=== PATIENT | female | born 1945 | race African-American/Black ===

== ENCOUNTER → 2017-05-24 | Outpatient (CLI) | payer OTHER ==
[~2017-05-24] MED LIST: BENADRYL25 M1 PO; CIPRO PO; FLORASTOR250 M1 PO; HYDROCHLOROTH12.5 MG PO; LISINOPRIL20 MG PO; METOPROLOL TAR100 MG PO; MULTI-VITAMIN1 EAC1 PO; NO MEDICATIONS; NORVASC10 MG PO; PERCOCET 5/321 UDTAB PO; PHENERGAN12.5 M1 PR; PRINIVIL40 MG PO; VICODIN PO; ZESTRIL40 MG PO
--- NOTE | ~2017-05-24 | CT2 ---
[facility] A Service of [facility] & [facility] RADIOLOGY TEXT RESULTS PATIENT: MAI HAYS [facility] 43 UNIT #: [id number] AGE: [address]: Quan Hernandez MD SEX: F ORDER DR: [id number] [facility] [address] [place], [place] [address] [id number] O MR#: [id number] [facility] #: [id number] NAME: MAI HAYS : 1945 SEX: F STUDY DATE/TIME: 05/24/2017 8:10 UNIT: [facility] ROOM: STUDY DESCRIPTION: CT Abd and Pelv W Cont Attending Physician: Quan Hernandez M.D. Referring Physician: Quan Hernandez M.D. Ordering Physician: Quan Hernandez M.D. Primary Care Physician: Ariella Cervantes M.D. 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 Status post surgical resection. Restaging. Observation for metastatic disease. TECHNIQUE CT abdomen and pelvis with oral and IV contrast (100 mL Isovue-370 IV contrast). Coronal and sagittal reconstructions were obtained. This CT exam was performed with one or more of the following radiation dose reduction techniques: automatic exposure control, adjustment of mA and/or kV according to patient size, and iterative reconstruction. COMPARISON CT abdomen and pelvis 03/18/2016. FINDINGS ABDOMEN: There is no abnormal enhancing mass or lesion in the liver. The gallbladder is full of gallstones. No gallbladder inflammation. Intrahepatic extrahepatic bile ducts are normal in caliber. The pancreas, spleen, adrenal glands, and kidneys are within normal limits. There is a small cyst in the in both kidneys. A small gastric diverticulum is noted at the fundus. The bowel is not dilated. The patient has had prior sigmoid colon resection with subsequent reanastomosis. There is no recurrent or residual mass identified at the sigmoid colon. No pathologically enlarged retroperitoneal or mesenteric lymph nodes. The abdominal aorta is normal in caliber. [facility] A Service of [facility] & [facility] RADIOLOGY TEXT RESULTS PATIENT: MAI HAYS LOCATION: [facility] : 43 UNIT #: [id number] AGE: [address]: Quan Hernandez MD SEX: F ORDER DR: There is a small umbilical hernia. PELVIS: The bladder is unremarkable. The uterus and ovaries are within normal limits. There is no enlarged pelvic or inguinal lymph nodes. No acute osseous abnormalities. IMPRESSION 1. No evidence of metastatic disease in the abdomen or pelvis. 2. Apparent postsurgical change of sigmoid colon resection with subsequent reanastomosis. No recurrent or residual mass is identified. Dictated by... Raheem Zambrano M.D. THIS IS AN ELECTRONICALLY VERIFIED REPORT Raheem Zambrano M.D. at 05/24/2017 6:52 PM ADRIANO/shamika TD: 05/24/2017 18:37 JOB #: [id number] MEDICAL IMAGING REPORT Page 1 of 1 COPY
[2017-05-24 12:21] LABS: POC - CREATININE 1.08 mg/dL (0.44-1.03); POC - GFR >60.0 mL/min (>60)
== END | disposition home or self-care (01) ==
LOC: CCAT 06:37
PROVIDERS: Internal Medicine Medical Oncology
DX: C18.9 Malignant neoplasm of colon, unspecified (principal); Z90.49 Acquired absence of other specified parts of digestive tract
CPT/HCPCS: 74177; 82565; J1642; Q9967